=== PATIENT | female | born 2000 | race Caucasian/White ===

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

== ENCOUNTER → 2020-01-07 | Outpatient (CLI) | payer BC, OTHER | LOC: M LABSMTC 10:40 | PROVIDERS: ATTEND Pediatrics | DX: Z11.59 Encounter for screening for other viral diseases (principal); Z20.828 Contact with and (suspected) exposure to other viral communicable diseases ==

== ENCOUNTER → 2020-01-15 | Outpatient (CLI) | payer BC ==
--- NOTE | 2020-02-28 09:42 | REP ---
OBSTETRIC ULTRASOUND FOR ANATOMY DATE: 01/26/2020. NOTE: Delay in reporting results from hospital computer system malfunction as a result of a malware attack. FINDINGS: There is a single intrauterine gestation in an oblique lie with the head in the uterine left upper quadrant. . The placenta is anterior, grade 0, without previa and without abruptio. The heart rate is 147 beats per minute. Subjectively, the amniotic fluid volume is normal. Cervix measures 3.2 cm in length. The composite gestational age by the ultrasound today is 20 weeks, 6 days. Gestational age by LMP is 21 weeks, 1 day. The SALVADOR is 05/26/2020. The following structures are suboptimally demonstrated: spine and kidneys. A followup study dedicated to these structures might be considered. The following anatomic structures are identified and are unremarkable: Cisternal magna, cavum septum pellucidum, thalami, stomach, four-chamber heart, cardiac and left ventricular outflow tracts, bladder, three-vessel cord, cord insertion, upper and lower extremities, and facial profile and upper lip. Followup evaluation of spine and kidneys might be considered. Otherwise, no anomalies are identified. MTDD
== END ==
LOC: M WHC 16:20
PROVIDERS: ATTEND Obstetrics & Gynecology
DX: Z34.92 Encounter for supervision of normal pregnancy, unspecified, second trimester (principal); Z3A.20 20 weeks gestation of pregnancy

== ENCOUNTER → 2020-02-13 | Outpatient (CLI) | payer BC ==
--- NOTE | 2020-03-05 12:40 | REP ---
FOLLOW-UP OBSTETRICAL ULTRASOUND CLINICAL: Anatomical reevaluation and follow-up. TECHNIQUE: Transabdominal obstetric ultrasound with color Doppler evaluation. FINDINGS: Ultrasound examination demonstrates a single live intrauterine in cephalic presentation. motion was identified by the technologist. Placenta is noted anteriorly and grade 1 without evidence for placenta previa or abruption. Amniotic fluid volume is normal. Cervix measures 3.5 cm in length and appears closed. Gestational age by last menstrual period (LMP) 25 weeks two days with estimated date of delivery 05/26/2020. Gestational age by current measurements 25 weeks 4 days with estimated date of delivery 05/24/2020. Estimated weight 888 grams (60th percentile). heart rate 152 beats per minute. Anatomical assessment demonstrates normal facial features, stomach, kidneys, bladder, spine, and three-vessel cord. IMPRESSION: * Single live intrauterine in cephalic presentation demonstrating appropriate estimated weight and growth. * In conjunction with prior examination, anatomical assessment is complete and normal. No gross abnormalities are identified. MTDD
== END ==
LOC: M WHC 15:38
PROVIDERS: ATTEND Advanced Practice Midwife
DX: Z36.89 Encounter for other specified antenatal screening (principal); Z3A.25 25 weeks gestation of pregnancy

== ENCOUNTER → 2020-03-01 | Outpatient (CLI) | payer OTHER, BC ==
[2020-03-01 12:39] LABS: HEMATOCRIT 38.2 % (36.0-47.0); HEMOGLOBIN 12.5 g/dl (12.0-15.5); MEAN CORPUSCULAR HEMOGLOBIN 29.6 pg (27.0-33.0); MEAN CORPUSCULAR HGB CONC 32.7 g/dl (32.0-36.5); MEAN CORPUSCULAR VOLUME 90.3 fl (80.0-96.0); PLATELET COUNT, AUTOMATED 302 10^3/uL (150-450); RED BLOOD COUNT 4.23 10^6/uL (4.00-5.40)
== END ==
LOC: M WUC 09:43
PROVIDERS: ATTEND Advanced Practice Midwife
DX: Z34.92 Encounter for supervision of normal pregnancy, unspecified, second trimester (principal); Z3A.00 Weeks of gestation of pregnancy not specified

== ENCOUNTER → 2020-04-27 | Outpatient (CLI) | payer BC ==
--- NOTE | 2020-04-27 17:27 | REP ---
INDICATION: UTERINE SIZE ATE DISCREPANCY,GROWTH COMPARISON: 02/13/2020 TECHNIQUE: Transabdominal obstetrical ultrasound with color Doppler evaluation. FINDINGS: Examination demonstrates a single live intrauterine in cephalic presentation. motion is identified by technologist. Placenta is noted anterior and grade 3 without evidence for placenta previa or abruption. Amniotic fluid volume is normal. Cervix appears closed.. Gestational age by LMP 35 weeks 6 days with SALVADOR 05/26/2020. Gestational age by current measurements 37 weeks 0 days with SALVADOR 05/18/2020. FHR equals 135 beats per minute. BPD: 9.0 cm 36 weeks 4 days HC: 32.8 cm 37 weeks 1 day AC: 35.9 cm 39 weeks 6 days FL: 6.8 cm 35 weeks 1 day HL: 6.2 cm 36 weeks 0 days HC/AC: 0.91 Estimated weight 3405 grams (greater than 97th percentile based on age by LMP; 90thpercentile based on age by current measurements). IMPRESSION: Single live intrauterine in cephalic presentation. Estimated weight and associated percentile as described above. <Electronically signed by Yovanny Black > 04/27/20 [id number]
== END ==
LOC: M WHC 15:03
PROVIDERS: ATTEND Advanced Practice Midwife
DX: O26.849 Uterine size-date discrepancy, unspecified trimester (principal); Z3A.35 35 weeks gestation of pregnancy

== ENCOUNTER → 2020-04-29 | Outpatient (REF) | payer BC, OTHER | LOC: M SFHCWAGY 17:05 | PROVIDERS: ATTEND Advanced Practice Midwife | DX: Z34.93 Encounter for supervision of normal pregnancy, unspecified, third trimester (principal); Z3A.36 36 weeks gestation of pregnancy ==

== ENCOUNTER → 2020-05-11 | Outpatient (CLI) | payer BC ==
--- NOTE | 2020-05-11 16:59 | REP ---
INDICATION: GROWTH. COMPARISON: 04/27/2020. TECHNIQUE: Real-time sonographic evaluation of the gravid uterus performed. FINDINGS: Estimated gestational age is37 weeks 6 days, EDC 05/26/2020. Today's measurements indicate appropriate growth. Presentation: Cephalic Placenta anterior, grade 3, without evidence of placenta previa. heart rate is recorded at 127 beats per minute. Amniotic fluid is subjectively normal. XOCHILT 16.1, normal range 7.3-24.0. Closed cervical length is measured at 3.4 cm. Biometry chart: BPD: 95 mm, 38 weeks 5 days, 62nd percentile. HC: 330 mm, 37 weeks 4 days, 45th percentile AC: 353 mm, the 39 weeks 2 days, 70th percentile Femur length: 74 mm, 37 weeks 6 days, 50th percentile HC to AC ratio: 0.93, normal range 0.91-1.10. Estimated weight: 3560g, 80th percentile. IMPRESSION: Viable single intrauterine gestation as above. <Electronically signed by Rogers Espinosa > 05/11/20 [id number]
== END ==
LOC: M WHC 15:28
PROVIDERS: ATTEND Advanced Practice Midwife
DX: O26.843 Uterine size-date discrepancy, third trimester (principal); Z3A.37 37 weeks gestation of pregnancy

== ENCOUNTER 2020-05-17 20:08 | Inpatient (IN) | payer BC, OTHER ==
[~2020-05-17] VITALS: Ht 165.1 cm; Wt 121.2 kg
[2020-05-17] MEDS ORDERED: LACTATED RINGER'S 1000 ML IV STA (21:27)
[2020-05-17] MEDS ORDERED: LR 1,000 ML IV SCH (21:27)
[2020-05-17] MEDS ORDERED: OXYTOCIN DRIP 30 UNITS in IV 1 EA IV SCH (21:45)
--- NOTE | 2020-05-17 22:05 | HPEPDOC ---
Obstetrical History & Physical General Date of Admission May 17, 2020 at 20:44 History of Present Illness Joselyn is a 20yo with SIUP at 38w5d by lmp c/w 9wk u/s presenting with CC of loss of fluid tonight at approx 1900, clear. She has felt some cramping, but no definite ctx pattern. No LOF. Good movement. No fevers/chills/nausea/vomiting/CP/SOB. 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: History of STD (chlamydia prior to ) Past Medical History Medical History Obesity Surgical History: Tonsilectomy Family History Significant Family History: No pertinent family hx Social History Marital Status: Other (life partner) Family situation: Spouse/partner home Psychosocial History: No pertinent psych hx * Smoker: non-smoker Alcohol: Denies Drugs: denies Imunizations Tdap status: declined Influenza Status: current Allergies Coded Allergies: No Known Allergies (Unverified , 08/22/18) Medications Scheduled PRN Ondansetron (Ondansetron Odt) 4 Mg Tab, 1 TAB PO Q6-8HP PRN for nausea/vomiting Physical Examination Physical Examination GENERAL: Alert and oriented times three. ABDOMEN: Gravid and non-tender to touch. FETUS: Is vertex (VTX) by sterile vaginal examination (SVE) EXTREMITIES: No edema BLE Nitrazine positive, grossly ruptured with clear fluid Laboratory Data 24H LABS Laboratory Tests 2 05/17/20 20:48: Serology Scanned Report Hepatitis B Testing Pertinent Laboratoy Data Blood Type: A+ RBC Antibody Screen: Negative HIV: Negative Hepatitis B: Negative Hepatitis C: Negative Rapid Plasma Reagin: Nonreactive Rubella: Nonreactive Chlamydia/Gonorrhea: Negative Group B Streptococcus: Negative Glucose Tolerance Test: 100 Anatomy Ultrasound Ultrasound Date: Feb 13, 2020 Placenta Location: Posterior Normal Anatomy: Yes Placenta Previa: No Other Ultrasounds 05/11 growth XOCHILT 16.1, cephalic, anterior placenta, 80%ile 3560g Steroid Therapy Steroid Therapy: No Vaginal Examination Dilation: 1cm Effacement: 70% Station: -2 Cervical Consistency: Soft Cervical Position: Posterior Presentation: Cephalic presentation Assessment Heart Rate (FHR): 140 Variability: Moderate Accelerations: Positive Decelerations: None Tocometer Contractions: Yes Frequency: regular, every 2-5 min. Duration: greater than 60 seconds Strength: palpated as mild Assessment/Plan Assessment Joselyn is a 20yo with SIUP at 38w5d by lmp c/w 9wk u/s with pre-labor rupture of membranes, clear, approx 1900. Nitrazine positive, grossly ruptured. SCE /-2, posterior. fernandez cervical bulb placed with 40cc NS. Cat I FHRT. Cephalic. Ctx q3-4min but palpate mild. PMhx: starting BMI >40 with normal glucose testing, rubella equivocal, has measured s>d but GS 12/7 80%ile Plan Admit and orient. Bridge Tender and consent. Diet: clear liquids Group B Streptococcus (GBS) negative Labs and intravenous (IV) per unit protocol. Counseled on fernandez bulb, Pitocin and augmentation of labor (IOL). Plan to initiate IV pitocin up and titrate up to 6mu while fernandez bulb is in place, then when it comes out will titrate up per protocol Lactated Ringers (LR): Bolus 800 mL, then at 125 mL/hr. Anticipate normal spontaneous delivery () Candidate for epidural in active labor, IV stadol in latent labor Safe to proceed Shena Briceño MD May 17, 2020 21:50
[2020-05-17] MEDS ORDERED: BUTORPHANOL 2 MG/ML INJ (J0595) IV PRN (22:15)
[2020-05-17] MEDS ORDERED: PROMETHAZINE INJ 25 MG/ML VIAL (J2550) IV ONE (22:15)
[2020-05-17 22:27] LABS: HEMATOCRIT 39.4 % (36.0-47.0); HEMOGLOBIN 12.6 g/dl (12.0-15.5); MEAN CORPUSCULAR HEMOGLOBIN 27.7 pg (27.0-33.0); MEAN CORPUSCULAR VOLUME 86.6 fl (80.0-96.0); PLATELET COUNT, AUTOMATED 310 10^3/uL (150-450); RED BLOOD COUNT 4.55 10^6/uL (4.00-5.40); WHITE BLOOD COUNT 19.6 10^3/uL (4.0-10.0)
[2020-05-17 23:27] VITALS: BP 96/56
[2020-05-18] VITALS (52 sets, daily range): BP systolic 87–143; BP diastolic 47–79
[2020-05-18] MEDS ORDERED: FENTANYL 2MCG/ML ROPIVACAINE 0.2% IN 0.9% NACL 100ML IVBAG As Ordered ONE (00:28)
[2020-05-18] MEDS ORDERED: ePHEDrine SULFATE 25 MG/5 ML(5MG/ML) SYRINGE IV PRN (00:45)
[2020-05-18] MEDS ORDERED: FENTANYL 2MCG/ML ROPIVACAINE 0.2% IN 0.9% NACL 100ML IVBAG ONE (00:45)
[2020-05-18] MEDS ORDERED: REFRIGERATOR IV KEYS XX PRN (00:45)
[2020-05-18] MEDS ORDERED: EPIDURAL/PCA KEYS XX PRN (00:45)
[2020-05-18] MEDS ORDERED: LACTATED RINGER'S 1000 ML IV PRN (00:45)
[2020-05-18] MEDS ORDERED: diphenhydrAMINE 50MG/ML VIAL (J1200) IV PRN (00:45)
[2020-05-18] MEDS ORDERED: ONDANSETRON 4MG/2ML VIAL IV PRN (00:45)
[2020-05-18] MEDS ORDERED: FENTANYL/ROPIVACAINE/NACL BAG 100 ML EPIDURAL SCH (00:45)
[2020-05-18] MEDS ORDERED: EPIDURAL COMMENT XX SCH (00:45)
[2020-05-18] MEDS ORDERED: NALOXONE INJ 0.4MG/1ML VIAL (J2310 PER 1MG) IV PRN (00:45)
[2020-05-18] MEDS ORDERED: OXYTOCIN DRIP 30 UNITS in IV 1 EA IV SCH (11:25)
[2020-05-18] MEDS ORDERED: DOCUSATE SODIUM 100MG CAPSULE PO PRN (11:30)
[2020-05-18] MEDS ORDERED: ANUSOL HC CREAM 30GM TOP PRN (11:30)
[2020-05-18] MEDS ORDERED: ACETAMINOPHEN TAB 650MG DOSE (2X325MG) PO PRN (11:30)
[2020-05-18] MEDS ORDERED: RHOGAM 300 MCG (1500 IU) INJ (J2790) IM SCH (11:30)
[2020-05-18] MEDS ORDERED: IBUPROFEN 800 MG TAB PO PRN (11:30)
[2020-05-18] MEDS ORDERED: MEASLES,MUMPS,RUBELLA VACCINE INJ (MMR-II) (90707) SC SCH (11:30)
[2020-05-18] MEDS ORDERED: ACETAMINOPHEN 500 MG TAB PO PRN (11:30)
[2020-05-18] MEDS ORDERED: IBUPROFEN 600MG TAB PO PRN (11:30)
[2020-05-18] MEDS ORDERED: BENZOCAINE 20% HEMORRHOIDAL OINTMENT 28GM TUBE TOP PRN (11:30)
[2020-05-18] MEDS ORDERED: METHYLERGONOVINE MALEATE 0.2 MG TAB PO PRN (11:30)
--- NOTE | 2020-05-18 11:53 | DNPDOC ---
[facility] Delivery Note Delivery Note DATE OF DELIVERY: 05/18/20 @ 1024 PREDELIVERY DIAGNOSIS: 38-6/7 weeks' gestation and labor. POST DELIVERY DIAGNOSIS: Delivered. PROCEDURE: Spontaneous vaginal delivery. HEATING AND VENTILATING TENDER: Alysa Naik CNM, FREYA and STEPHANIE [place] ANESTHESIA: Epidural. ESTIMATED BLOOD LOSS: 450 mL. FINDINGS: 9 pound 3 ounce, 4170g, Male infant, Score 7/9, occult cord with shoulders, macrosomia. DELIVERY SUMMARY: Patient is a 20-year-old 1 now para 1-0-0-1 who was admitted to labor and delivery with SROM. A cervical balloon and Pitocin were started and she progressed well to full dilation at 0952 and began pushing. The head delivered in the OA position with restitution to ROT. Anterior shoulder delivered with ease and corpus followed with maternal pushing efforts. Occult cord noted with delivery of shoulders and released. Infant placed skin to skin on maternal abdomen. With slight assistance the placenta was hanging out of the cervix, grasped and removed from the vagina and delivered at 1048. Fundal massage and IV Pitocin bolus was started. Fundus firmed to U-1, small flow. Vagina, perineum, and cervix were examined and found to have a 1st degree left perineal laceration with extension to labia, repaired with a 3-0 Vicryl Rapide and hemostatic (1 interrupted suture). All sharps and sponges were counted and correct. Infant with parents, planning to name him "Kd", and breast and bottle feed . Both mom and baby are in stable condition. ALYSA NAIK CNM May 18, 2020 11:20
--- NOTE | 2020-05-18 12:12 | IPNPDOC ---
Obstetrical Progress Note Date of Service May 18, 2020 Subjective Joselyn is comfortable but feeling some rectal pressure with contractions. Objective Vital Signs Date Time Temp Pulse Resp B/P (MAP) Pulse Ox O2 Delivery O2 Flow Rate FiO2 05/18/20 06:01 78 109/58 (75) 05/18/20 05:31 18 Assessment Variability: Moderate (Minimal in areas of tracing, primarily moderate ) Accelerations: None Decelerations: None Heart Rate Tracing: Category I Tocometer Contractions: Yes Frequency: regular, every 1-3 min. Duration: greater than 60 seconds Strength: palpated as strong Sterile Vaginal Examination Dilation: 9 cm (Anterior Lip) Effacement (%): 100% Station: 0 Cervical Consistency: Soft Cervical Position: Anterior Postion/Presentation: Cephalic presentation Assessment and Plan Age: 20 : 1 Term: 0 Pre-term: 0 Abortions: 0 Livin Weeks & Days 38.6 Status: Reassuring Anticipate: Vaginal Delivery Additional Comments AROM of forebag for small amount of meconium stained fluid. Pitocin at 10mu/min. Continue with Pitocin and anticipate . Patient educated on shoulder dystocia maneuvers and possible outcomes and staff preparedness. ALYSA ZAPATA CNM May 18, 2020 08:17
[2020-05-19 05:45] VITALS: BP 109/61
--- NOTE | 2020-05-19 06:26 | IPNPDOC ---
Progress Note Date of Service: May 19, 2020 Day#: 1 Progress Note SUBJECT: Joselyn is a 20-year-old 1 now Para 1-0-0-1 status post uncompli cated spontaneous vaginal delivery at 38-6/7 weeks' doing well day # 1. She has been ambulating well, voiding spontaneously without issue and tolerating regular diet. Breast feeding is not going well, infant not latching. She is supplementing with formula. Reports lochia is like a normal period. Reports soreness, but pain covered well with Tylenol and Motrin. OBJECTIVE: VITAL SIGNS: Within normal limits, afebrile. Alert and oriented times three. Respiratory: Regular rate, no accessory muscle use Heart rate: Regular rate and rhythm, no murmurs, rubs or gallops. Abdomen: Fundus firm at U-1. Soft, NTTP. Minimal lochia. ASSESSMENT: Day 1 PLAN: 1. May shower, activity as tolerated 2. Tylenol and Motrin for pain. 3. Encourage breast feeding and ambulation. 4. Nursing care per policy. VS, I&O, 24H, Fishbone Vital Signs/I&O Vital Signs Date Time Temp Pulse Resp B/P (MAP) Pulse Ox O2 Delivery O2 Flow Rate FiO2 05/19/20 05:45 98.6 81 16 109/61 (77) 97 Room Air I&O- Last 24 Hours up to 6 AM 05/19/20 06:00 Intake Total 6425 ml Output Total 2500 ml Balance 3925 ml Laboratory Data 24H LABS Laboratory Tests 2 05/18/20 13:52: Bedside Glucose (Misc Panel) 44L ALYSA ZAPATA CNM May 19, 2020 06:26
[2020-05-19] MEDS: PRENATAL VITAMINS CHEWABLE TABLET PO SCH (07:52)
[2020-05-19 18:00] VITALS: BP 136/76
[2020-05-20 05:28] VITALS: BP 144/84
--- NOTE | 2020-05-20 07:15 | IPNPDOC ---
Progress Note Date of Service: May 20, 2020 Day#: 2 Progress Note SUBJECT: Status post . She has been ambulating, voiding spontaneously without issue and tolerating regular diet. Lochia decreasing/minimal. Patient is ambulating well. OBJECTIVE: VITAL SIGNS: Within normal limits, afebrile. Alert and oriented times three. Abdomen: Fundus firm at U-2. Soft, NTTP. ASSESSMENT: Status post uncomplicated spontaneous vaginal delivery. Vitals within normal limits, afebrile, hemodynamically stable with no evidence of infection. PLAN: Discharge to home today. Tylenol and Motrin for pain. Routine instructions/precautions reviewed. Routine PP visit in 6 weeks in clinic. VS, I&O, 24H, Fishbone Vital Signs/I&O Vital Signs Date Time Temp Pulse Resp B/P (MAP) Pulse Ox O2 Delivery O2 Flow Rate FiO2 05/20/20 05:28 97.7 98 18 144/84 (104) 96 Room Air NETTIE MUKHERJEE DO May 20, 2020 07:15
[2020-05-20] MEDS: PRENATAL VITAMINS CHEWABLE TABLET PO SCH (08:55)
== END 2020-05-20 18:00 | disposition home or self-care (01) | DRG 560 ==
LOC: M LDO 20:08 → M LDI 20:44 → M OBS 05-18 12:55
PROVIDERS: ADMIT Obstetrics & Gynecology; ATTEND Obstetrics & Gynecology
PROC: 3E033VJ Introduction of Other Hormone into Peripheral Vein, Percutaneous Approach (ICD-10-PCS; 2020-05-17)
PROC: 10E0XZZ Delivery of Products of Conception, External Approach (ICD-10-PCS; principal; 2020-05-18)
PROC: 0HQ9XZZ Repair Perineum Skin, External Approach (ICD-10-PCS; 2020-05-18)
DX: O99.214 Obesity complicating childbirth (principal); Z68.41 Body mass index [BMI] 40.0-44.9, adult; Z3A.38 38 weeks gestation of pregnancy; Z37.0 Single live birth; O42.02 Full-term premature rupture of membranes, onset of labor within 24 hours of rupture; O70.0 First degree perineal laceration during delivery

== ENCOUNTER → 2020-10-20 | Outpatient (REF) | payer OTHER | LOC: M SFHCWAGY 12:40 | PROVIDERS: ATTEND Advanced Practice Midwife | DX: N76.0 Acute vaginitis (principal) ==

== ENCOUNTER 2021-01-02 17:48 | Emergency (ER) | payer OTHER ==
[~2021-01-02] VITALS: Ht 165.1 cm; Wt 120.5 kg
[2021-01-02 17:48] VITALS: BP 135/78
[2021-01-02] MEDS ORDERED: ESTA0.25 (18:00)
--- NOTE | 2021-01-02 18:28 | REP ---
INDICATION: fall injury, felt pop. COMPARISON: Right ankle, 09/29/2008. TECHNIQUE: Four views of the right ankle were obtained. FINDINGS: There is soft tissue swelling over the lateral malleolus. There is no evidence of fracture or dislocation. There are no joint space abnormalities. IMPRESSION: Lateral ankle sprain. <Electronically signed by Tucker Modi > 01/02/21 [id number]
== END 2021-01-02 19:38 | disposition home or self-care (01) ==
LOC: M ED 17:48
DX: S93.401A Sprain of unspecified ligament of right ankle, initial encounter (principal); X50.0XXA Overexertion from strenuous movement or load, initial encounter; Y92.830 Public park as the place of occurrence of the external cause; Y93.65 Activity, lacrosse and field hockey; Y99.8 Other external cause status; Z79.3 Long term (current) use of hormonal contraceptives

== ENCOUNTER → 2021-06-01 | Outpatient (REF) ==
[~2021-06-01] MED LIST changes: +ESTA0.25
== END ==
LOC: M EMP 14:47
PROVIDERS: ATTEND Family Medicine
DX: Z11.52 Encounter for screening for COVID-19 (principal)

== ENCOUNTER → 2021-07-23 | Outpatient (REF) | LOC: M LABSMTC 11:34 | PROVIDERS: ATTEND Family Medicine | DX: Z20.822 Contact with and (suspected) exposure to COVID-19 (principal) ==

== ENCOUNTER → 2021-09-09 | Outpatient (REF) | payer BC, OTHER ==
[2021-09-09 20:42] LABS: APPEARANCE, URINE HAZY (CLEAR); BACTERIA, URINE AUTO NEGATIVE (NEGATIVE); BILIRUBIN, URINE AUTO NEGATIVE (NEGATIVE); BLOOD, URINE BLOOD NEGATIVE (NEGATIVE); COLOR, URINE YELLOW (YELLOW); GLUCOSE, URINE (UA) AUTO NEGATIVE (NEGATIVE); KETONE, URINE AUTO NEGATIVE (NEGATIVE); LEUKOCYTE ESTERASE, URINE AUTO NEGATIVE (NEGATIVE); MUCUS, URINE SMALL (NEGATIVE); NITRITE, URINE AUTO NEGATIVE (NEGATIVE); PROTEIN, URINE AUTO NEGATIVE (NEGATIVE); RBC, URINE AUTO 0 /HPF (0-3); SPECIFIC GRAVITY URINE AUTO 1.029 (1.002-1.035); SQUAMOUS EPITHELIAL CELL UR AU 3 /HPF (0-6); UROBILINOGEN, URINE AUTO 0.2 mg/dL (0.0-2.0); WBC, URINE AUTO 1 /HPF (0-3)
[2021-09-09 22:11] LABS: GC DNA AMPLIFICATION NEGATIVE (NEGATIVE)
== END ==
LOC: M LAB REF 20:27
PROVIDERS: ATTEND Physician Assistant
DX: R30.0 Dysuria (principal)

== ENCOUNTER → 2021-10-18 | Outpatient (CLI) | payer OTHER | LOC: M PLALAB 14:46 | PROVIDERS: ATTEND Specialist | DX: N92.6 Irregular menstruation, unspecified (principal) ==

== ENCOUNTER → 2022-01-19 | Outpatient (REF) | payer OTHER | LOC: M SFHCWAGY 17:08 | PROVIDERS: ATTEND Specialist | DX: Z12.4 Encounter for screening for malignant neoplasm of cervix (principal) ==

== ENCOUNTER → 2022-06-27 | Outpatient (REF) | payer OTHER | LOC: M PLALAB 16:31 | PROVIDERS: ATTEND Nurse Practitioner Family | DX: N89.8 Other specified noninflammatory disorders of vagina (principal) ==

== ENCOUNTER → 2023-05-26 | Outpatient (REF) | payer OTHER ==
[2023-05-26 16:48] LABS: AMORPHOUS SEDIMENT SMALL (NEGATIVE); APPEARANCE, URINE TURBID (CLEAR); BACTERIA, URINE AUTO NEGATIVE (NEGATIVE); BILIRUBIN, URINE AUTO NEGATIVE (NEGATIVE); BLOOD, URINE BLOOD NEGATIVE (NEGATIVE); CALCIUM OXALATE CRYSTALS MODERATE; COLOR, URINE YELLOW (YELLOW); GLUCOSE, URINE (UA) AUTO NEGATIVE (NEGATIVE); KETONE, URINE AUTO NEGATIVE (NEGATIVE); LEUKOCYTE ESTERASE, URINE AUTO NEGATIVE (NEGATIVE); NITRITE, URINE AUTO NEGATIVE (NEGATIVE); PROTEIN, URINE AUTO NEGATIVE (NEGATIVE); RBC, URINE AUTO 0 /HPF (0-3); SPECIFIC GRAVITY URINE AUTO 1.024 (1.002-1.035); SQUAMOUS EPITHELIAL CELL UR AU 0 /HPF (0-6); UROBILINOGEN, URINE AUTO 0.2 mg/dL (0.0-2.0); WBC, URINE AUTO 0 /HPF (0-3)
== END ==
LOC: M SFHCWAGY 15:33
PROVIDERS: ATTEND Nurse Practitioner Family
DX: R39.15 Urgency of urination (principal); N39.0 Urinary tract infection, site not specified

== ENCOUNTER 2023-07-08 21:49 | Emergency (ER) | payer OTHER ==
[~2023-07-08] VITALS: Ht 165.1 cm; Wt 124.1 kg
[2023-07-08 21:50] VITALS: O2SAT 99
[2023-07-08] MEDS ORDERED: DIPH50CA PO (22:00)
[2023-07-08] MEDS ORDERED: FAMOTIDINE 20MG/2ML VIAL IVP ONE (23:15)
[2023-07-08] MEDS ORDERED: NS 1,000 ML IV ONE (23:15)
[2023-07-08] MEDS ORDERED: methylPREDNISolone 125MG 2ML VIAL IV ONE (23:15)
[2023-07-08] MEDS ORDERED: PRED20TA PO (23:56)
[2023-07-08] MEDS ORDERED: PEPC1TAB5 PO (23:56)
[2023-07-09 00:28] VITALS: BP 100/57; TEMP 96.9
== END 2023-07-09 01:41 | disposition home or self-care (01) ==
LOC: M ED 21:49
DX: R21 Rash and other nonspecific skin eruption (principal); T78.40XA Allergy, unspecified, initial encounter
CPT/HCPCS: 96361; 96374; 99284; J2930; S0028

== ENCOUNTER → 2023-09-06 | Outpatient (REF) | payer OTHER ==
[~2023-09-06] MED LIST changes: +DIPH50CA PO; +PEPC1TAB5 PO; +PRED20TA PO
== END ==
LOC: M LAB REF 21:58
PROVIDERS: ATTEND Physician Assistant
DX: J02.9 Acute pharyngitis, unspecified (principal)

== ENCOUNTER → 2023-09-18 | Outpatient (REF) | payer OTHER | LOC: M SFHCWAGY 12:10 | PROVIDERS: ATTEND Nurse Practitioner Family | DX: R39.15 Urgency of urination (principal) ==

== ENCOUNTER → 2023-11-10 | Outpatient (CLI) | payer OTHER ==
[~2023-11-10] MED LIST changes: +ONDA-282 PO; -ONDA4TAB6 PO
[2023-11-10 14:35] LABS: THYROID STIMULATING HORMONE 1.912 uIU/ML (0.55-4.78)
[2023-11-10 14:40] LABS: HEMATOCRIT 42.9 % (36.0-47.0); MEAN CORPUSCULAR HEMOGLOBIN 28.3 pg (27.0-33.0); MEAN CORPUSCULAR HGB CONC 32.6 g/dl (32.0-36.5); MEAN CORPUSCULAR VOLUME 86.7 fl (80.0-96.0); PLATELET COUNT, AUTOMATED 377 10^3/uL (150-450); RED BLOOD COUNT 4.95 10^6/uL (4.00-5.40)
[2023-11-10 14:41] LABS: ALBUMIN 3.8 G/DL (3.2-5.2); ALKALINE PHOSPHATASE 83 U/L (46-116); ALT/SGPT 20 U/L (7.0-40); AST/SGOT 10 U/L (<34); BILIRUBIN,TOTAL 0.4 MG/DL (0.3-1.2); BLOOD UREA NITROGEN 14 MG/DL (9-23); CALCIUM LEVEL 9.1 MG/DL (8.5-10.1); CARBON DIOXIDE LEVEL 24 MMOL/L (20-31); CHLORIDE LEVEL 108 MMOL/L (98-107); CREATININE FOR GFR 0.63 MG/DL (0.55-1.30); GLOMERULAR FILTRATION RATE > 60.0 (>60); GLUCOSE, FASTING 89 MG/DL (60-100); POTASSIUM SERUM 4.3 MMOL/L (3.5-5.1); SODIUM LEVEL 141 MMOL/L (136-145); TOTAL PROTEIN 7.4 G/DL (5.7-8.2)
[2023-11-10 15:01] LABS: HEMOGLOBIN A1c 5.2 % (4.0-6.0)
== END ==
LOC: M PLALAB 10:12
PROVIDERS: ATTEND Obstetrics & Gynecology
DX: Z31.9 Encounter for procreative management, unspecified (principal)

== ENCOUNTER → 2023-11-27 | Outpatient (CLI) | payer OTHER | LOC: M WHC 10:24 | PROVIDERS: ATTEND Obstetrics & Gynecology | DX: Z31.9 Encounter for procreative management, unspecified (principal) ==

== ENCOUNTER → 2023-12-28 | Outpatient (CLI) | payer OTHER ==
[~2023-12-28] MED LIST changes: +ISOVUE-370 76% 100ML VIAL As Ordered ONE
== END ==
LOC: M RADPRO 11:52
PROVIDERS: ATTEND Obstetrics & Gynecology
DX: Z31.9 Encounter for procreative management, unspecified (principal)
CPT/HCPCS: 58340; 74740; 81025; Q9967

== ENCOUNTER → 2024-01-01 | Outpatient (REF) | payer OTHER ==
[~2024-01-01] MED LIST changes: -ISOVUE-370 76% 100ML VIAL As Ordered ONE
[2024-01-01 11:06] LABS: APPEARANCE, URINE HAZY (CLEAR); BACTERIA, URINE AUTO 1+ (NEGATIVE); BILIRUBIN, URINE AUTO NEGATIVE (NEGATIVE); BLOOD, URINE BLOOD NEGATIVE (NEGATIVE); COLOR, URINE YELLOW (YELLOW); GLUCOSE, URINE (UA) AUTO NEGATIVE (NEGATIVE); KETONE, URINE AUTO NEGATIVE (NEGATIVE); LEUKOCYTE ESTERASE, URINE AUTO NEGATIVE (NEGATIVE); MUCUS, URINE SMALL (NEGATIVE); NITRITE, URINE AUTO NEGATIVE (NEGATIVE); PROTEIN, URINE AUTO NEGATIVE (NEGATIVE); RBC, URINE AUTO 0 /HPF (0-3); SQUAMOUS EPITHELIAL CELL UR AU 7 /HPF (0-6); UROBILINOGEN, URINE AUTO 0.2 mg/dL (0.0-2.0); WBC, URINE AUTO 0 /HPF (0-3)
[2024-01-01 19:38] LABS: Trichomonas vaginalis (AMP) NOT DETECTED (NEGATIVE)
[2024-01-01 20:01] LABS: GC DNA AMPLIFICATION NEGATIVE (NEGATIVE)
== END ==
LOC: M SFHCWAGY 10:26
PROVIDERS: ATTEND Obstetrics & Gynecology
DX: N89.8 Other specified noninflammatory disorders of vagina (principal)